=== PATIENT | male | born 1945 | race American Indian/Alaskan Native ===

== ENCOUNTER 2018-03-12 04:39 | Emergency (ER) | payer MEDICARE ==
[2018-03-12] MEDS ORDERED: ASPIRIN PO ONE (05:23)
[2018-03-12 06:04] LABS: Basophils % (Auto) 0.9 % (0.0-1.8); Eosinophils # (Auto) 0.1 K/mm3 (0.0-0.4); Eosinophils % (Auto) 1.8 % (0.0-4.3); Hematocrit 40.9 % (35.5-45.6); Hemoglobin 12.8 gm/dl (11.8-15.2); Lymphocytes # (Auto) 1.3 K/mm3 (1.2-5.4); Lymphocytes % (Auto) 30.6 % (13.4-35.0); Mean Corpuscular HGB Conc 31 % (32-34); Mean Corpuscular Volume 78 fl (84-94); Monocytes # (Auto) 0.4 K/mm3 (0.0-0.8); Platelet Count 247 K/mm3 (140-440); Red Blood Count 5.26 M/mm3 (3.65-5.03); Red Cell Distribution Width 17.5 % (13.2-15.2)
[2018-03-12 06:05] LABS: Mean Corpuscular Hemoglobin 24 pg (28-32)
[2018-03-12 06:15] LABS: BUN/Creatinine Ratio 11; Blood Urea Nitrogen 14 mg/dL (9-20); Calcium 8.9 mg/dL (8.4-10.2); Hemolysis Index 17
--- NOTE | 2018-03-12 11:44 | Cat Scan Report ---
CTA chest: History: Intermittent chest pain. Findings: Focal area of low attenuation left lobe of thyroid gland. No endobronchial or mediastinal mass or adenopathy. No pleural or pericardial effusion. Atherosclerotic ascending thoracic aorta measuring 3.3 cm. Descending thoracic aorta deb 3 cm with mural thrombus. No evidence of pulmonary embolism. 1 cm noncalcified nodule right lower chest. Impression: No evidence of pulmonary embolism. 1 cm noncalcified nodule right lower chest.
--- NOTE | 2018-03-12 12:46 | Emergency Department Report ---
ED Chest Pain HPI - General Chief Complaint: Chest Pain Stated Complaint: CHEST PAIN Time Seen by Provider: 03/12/18 09:34 Source: patient Mode of arrival: Ambulatory Limitations: No Limitations - History of Present Illness Initial Comments: Patient is 72-year-old male who is presenting with some left- sided chest discomfort. Patient states this is worse when he is laying flat but is having some tiles throughout the day for the last several days. Patient has had a dry cough as well. Patient when he does get chest discomfort sometimes feels those breast being taken away. Patient states the discomfort sometimes radiates through his back as well. Patient denies any fevers chills congestion current chest pain or shortness of breath nausea vomiting. Severity scale (0 -10): 0 - Related Data Home Medications Medication Instructions Recorded Confirmed Last Taken Aspirin [Aspirin BABY CHEW TAB] 81 mg PO QDAY 05/06/16 05/06/16 05/06/16 Atenolol [Tenormin] 50 mg PO QAM 05/06/16 05/06/16 05/06/16 Atenolol [Tenormin] 50 mg PO QHS 05/06/16 05/06/16 Unknown Atorvastatin [Lipitor] 80 mg PO QHS 05/06/16 05/06/16 Unknown Clopidogrel [Plavix] 75 mg PO QDAY 05/06/16 05/06/16 05/06/16 ISOSORBIDE MONOnitrate [Imdur ER] 60 mg PO QDAY 05/06/16 05/06/16 05/06/16 amLODIPine [Norvasc] 10 mg PO DAILY 05/06/16 05/06/16 05/06/16 Previous Rx's Medication Instructions Recorded Last Taken Type Pantoprazole [Protonix TAB] 40 mg PO QDAY #30 tablet 05/07/16 Unknown Rx Pantoprazole [Protonix TAB] 20 mg PO DAILY #30 tablet. 03/12/18 Unknown Rx Allergies Allergy/AdvReac Type Severity Reaction Status Date / Time No Known Allergies Allergy Verified 10/21/16 21:49 Heart Score - HEART Score History: Slightly suspicious EKG: Normal Age: > 65 Risk factors: 1-2 risk factors Troponin: < normal limit HEART Score: 3 ED Review of Systems ROS: Stated complaint: CHEST PAIN Other details as noted in HPI Comment: All other systems reviewed and negative ED Past Medical Hx - Past Medical History Previous Medical History?: Yes Hx Hypertension: Yes Hx GERD: Yes Hx Renal Disease: Yes Hx COPD: Yes Additional medical history: PVD, Atherosclerosis,hyperlipedemia - Surgical History Past Surgical History?: No - Social History Smoking Status: Never Smoker Substance Use Type: None - Medications Home Medications: Home Medications Medication Instructions Recorded Confirmed Last Taken Type Aspirin [Aspirin BABY CHEW TAB] 81 mg PO QDAY 05/06/16 05/06/16 05/06/16 History Atenolol [Tenormin] 50 mg PO QAM 05/06/16 05/06/16 05/06/16 History Atenolol [Tenormin] 50 mg PO QHS 05/06/16 05/06/16 Unknown History Atorvastatin [Lipitor] 80 mg PO QHS 05/06/16 05/06/16 Unknown History Clopidogrel [Plavix] 75 mg PO QDAY 05/06/16 05/06/16 05/06/16 History ISOSORBIDE MONOnitrate [Imdur ER] 60 mg PO QDAY 05/06/16 05/06/16 05/06/16 History amLODIPine [Norvasc] 10 mg PO DAILY 05/06/16 05/06/16 05/06/16 History Pantoprazole [Protonix TAB] 40 mg PO QDAY #30 tablet 05/07/16 Unknown Rx Pantoprazole [Protonix TAB] 20 mg PO DAILY #30 tablet. 03/12/18 Unknown Rx ED Physical Exam - General Limitations: No Limitations General appearance: alert, in no apparent distress - Head Head exam: Present: atraumatic, normocephalic - Eye Eye exam: Present: normal appearance - ENT ENT exam: Present: mucous membranes moist - Neck Neck exam: Present: normal inspection - Respiratory Respiratory exam: Present: normal lung sounds bilaterally. Absent: respiratory distress - Cardiovascular Cardiovascular Exam: Present: regular rate, normal rhythm. Absent: systolic murmur, diastolic murmur, rubs, gallop - GI/Abdominal GI/Abdominal exam: Present: soft, normal bowel sounds - Rectal Rectal exam: Present: deferred - Extremities Exam Extremities exam: Present: normal inspection - Back Exam Back exam: Present: normal inspection - Neurological Exam Neurological exam: Present: alert, oriented X3 - Psychiatric Psychiatric exam: Present: normal affect, normal mood - Skin Skin exam: Present: warm, dry, intact, normal color. Absent: rash ED Course Vital Signs 03/12/18 03/12/18 03/12/18 05:18 09:40 11:22 Temperature 98 F Pulse Rate 67 64 Respiratory 18 16 16 Rate Blood Pressure 131/75 Blood Pressure 137/76 [Right] O2 Sat by Pulse 97 Oximetry 03/12/18 03/12/18 03/12/18 11:55 11:57 11:59 Temperature Pulse Rate Respiratory Rate Blood Pressure Blood Pressure [Right] O2 Sat by Pulse 96 97 96 Oximetry 03/12/18 12:01 Temperature Pulse Rate Respiratory Rate Blood Pressure Blood Pressure [Right] O2 Sat by Pulse 96 Oximetry BOSTON score - Boston Score Age > 65: (1) Yes Aspirin use within the Past 7 Days: (1) Yes 3 or more CAD Risk Factors: (1) Yes 2 or more Angina events in past 24 hrs: (0) No Known CAD with more than 50% Stenosis: (1) Yes Elevated Cardiac Markers: (0) No ST Deviation Greater than 0.5mm: (0) No BOSTON Score: 4 ED Medical Decision Making - Lab Data Result diagrams: 03/12/18 05:51 03/12/18 05:51 Lab Results 03/12/18 03/12/18 03/12/18 Range/Units 05:51 05:51 08:03 WBC 4.3 L (4.5-11.0) K/mm3 RBC 5.26 H (3.65-5.03) M/mm3 Hgb 12.8 (11.8-15.2) gm/dl Hct 40.9 (35.5-45.6) % MCV 78 L (84-94) fl MCH 24 L (28-32) pg MCHC 31 L (32-34) % RDW 17.5 H (13.2-15.2) % Plt Count 247 (140-440) K/mm3 Lymph % (Auto) 30.6 (13.4-35.0) % Shannon % (Auto) 9.0 H (0.0-7.3) % Eos % (Auto) 1.8 (0.0-4.3) % Baso % (Auto) 0.9 (0.0-1.8) % Lymph # 1.3 (1.2-5.4) K/mm3 Shannon # 0.4 (0.0-0.8) K/mm3 Eos # 0.1 (0.0-0.4) K/mm3 Baso # 0.0 (0.0-0.1) K/mm3 Seg Neutrophils % 57.7 (40.0-70.0) % Seg Neutrophils # 2.5 (1.8-7.7) K/mm3 Sodium 144 (137-145) mmol/L Potassium 4.1 (3.6-5.0) mmol/L Chloride 106.8 (98-107) mmol/L Carbon Dioxide 26 (22-30) mmol/L Anion Gap 15 mmol/L BUN 14 (9-20) mg/dL Creatinine 1.3 (0.8-1.5) mg/dL Estimated GFR > 60 ml/min BUN/Creatinine Ratio 11 % Calcium 8.9 (8.4-10.2) mg/dL Troponin T < 0.010 < 0.010 (0.00-0.029) ng/mL 03/12/18 Range/Units 11:40 WBC (4.5-11.0) K/mm3 RBC (3.65-5.03) M/mm3 Hgb (11.8-15.2) gm/dl Hct (35.5-45.6) % MCV (84-94) fl MCH (28-32) pg MCHC (32-34) % RDW (13.2-15.2) % Plt Count (140-440) K/mm3 Lymph % (Auto) (13.4-35.0) % Shannon % (Auto) (0.0-7.3) % Eos % (Auto) (0.0-4.3) % Baso % (Auto) (0.0-1.8) % Lymph # (1.2-5.4) K/mm3 Shannon # (0.0-0.8) K/mm3 Eos # (0.0-0.4) K/mm3 Baso # (0.0-0.1) K/mm3 Seg Neutrophils % (40.0-70.0) % Seg Neutrophils # (1.8-7.7) K/mm3 Sodium (137-145) mmol/L Potassium (3.6-5.0) mmol/L Chloride (98-107) mmol/L Carbon Dioxide (22-30) mmol/L Anion Gap mmol/L BUN (9-20) mg/dL Creatinine (0.8-1.5) mg/dL Estimated GFR ml/min BUN/Creatinine Ratio % Calcium (8.4-10.2) mg/dL Troponin T < 0.010 (0.00-0.029) ng/mL - EKG Data -: EKG Interpreted by Pr - EKG Data Interpretation: other (EKG shows sinus rhythm a rate of 63 and normal axis normal intervals no ST segment elevation or depression as interpreted at [facility] has a normal EKG.) - Radiology Data Radiology results: report reviewed CT angiogram of the chest shows no aortic dissection or pulmonary embolus at this time. - Medical Decision Making Patient is a 72-year-old male who is having episodic chest discomfort lasts up to 5 minutes at a time. Patient states sometimes this takes his breath away and caused him to have a dry cough briefly. Patient states it woke him up last night. Patient ruled out for [place] pneumonia pericarditis and pulmonary embolus and aortic dissection. Patient most likely has GERD. Patient will be started on Protonix will be discharged home. Critical care attestation.: If time is entered above; I have spent that time in minutes in the direct care of this critically ill patient, excluding procedure time. ED Disposition Clinical Impression: GERD (gastroesophageal reflux disease) Qualifiers: Esophagitis presence: esophagitis presence not specified Qualified Code(s): K21.9 - Gastro-esophageal reflux disease without esophagitis Disposition: DC-01 TO HOME OR SELFCARE Is pt being admited?: No Does the pt Need Aspirin: No Condition: Stable Prescriptions: Pantoprazole [Protonix TAB] 20 mg PO DAILY #30 tablet.dr Referrals: MELANIE LORD MD [Primary Care Provider] - 3-5 Days
[2018-03-12 13:27] VITALS: BP 132/78
== END 2018-03-12 12:50 | disposition home or self-care (01) ==
LOC: ED 04:39
DX: K21.9 Gastro-esophageal reflux disease without esophagitis (principal); R05 Cough; I10 Essential (primary) hypertension; J44.9 Chronic obstructive pulmonary disease, unspecified; E78.5 Hyperlipidemia, unspecified; Z79.899 Other long term (current) drug therapy
CPT/HCPCS: 36415; 71275; 80048; 84484; 85025; 93005; 93010; 99284; Q9967

== ENCOUNTER 2018-03-27 07:37 | Outpatient (CLI) | payer MEDICARE ==
--- NOTE | 2018-03-28 08:24 | PET Report ---
PET/CT:03/27/18 07:37:00 CLINICAL: Right lower lobe lung nodule RADIOPHARMACEUTICAL: 14.33mCi F18-FDG. COMPARISON: CT Chest 03/12/18 TECHNIQUE- Following intravenous injection of F-18 FDG and an approximately 60 minute uptake period, CT and PET images from the mid skull to the upper thighs were acquired with the patient in the fasted state. No contrast was administered. The CT protocol used for this PET CT study is designed for attenuation correction and anatomic localization of PET abnormalities. This paint spray tender CT is not desired to produce and cannot replace, [id number] diagnostic CT scans with specific imaging protocols for different body parts and indications. Plasma glucose at the time of this test: 118g/dl. The standardized uptake values (SUV) are normalized to patient body weight and indicate the highest activity concentration (SUV max) in a given disease site. FINDINGS: Brain--Physiologic FDG uptake in the visualized regions of the brain. Neck--Physiologic FDG uptake mucosal structures and salivary glands. The left thyroid lobe is mildly enlarged and heterogeneous in density. Chest--Physiologic FDG uptake in mediastinal blood pool and myocardium. Lungs--No abnormal uptake. The 1.1 cm x 1.1 cm right lower lobe lung nodule is not FDG avid with an SUV 1.4. No other lung nodule or mass. Pleura/pericardium--No abnormal uptake. Thoracic nodes--No abnormal uptake. No lymphadenopathy. Hepatobiliary--No abnormal uptake. Liver background SUV mean, as a reference for comparing FDG studies, is 3.6 . No liver mass. Spleen--No abnormal uptake. Pancreas--No abnormal uptake. Adrenal Glands--No abnormal uptake. Kidneys/Ureters/Bladder--No abnormal uptake. Abdominopelvic Nodes--No abnormal uptake. Bowel/Peritoneum/Mesentery--No abnormal uptake. Pelvic organs--No abnormal uptake. Bones/Soft Tissues--No abnormal uptake. No suspicious bone lesion. Other findings: Extensive coronary artery calcifications. IMPRESSION- 1. A 1.1 cm non-FDG avid right lower lobe lung nodule. It remains suspicious for neoplasm despite the lack of FDG uptake. 2. The rest of the exam is negative with no abnormal FDG uptake and no signs of metastatic disease.
== END 2018-03-27 07:38 | disposition home or self-care (01) ==
LOC: PET 07:37
PROVIDERS: ATTEND Internal Medicine
DX: R91.1 Solitary pulmonary nodule (principal); E04.9 Nontoxic goiter, unspecified; I25.10 Atherosclerotic heart disease of native coronary artery without angina pectoris; I10 Essential (primary) hypertension; K21.9 Gastro-esophageal reflux disease without esophagitis; E78.5 Hyperlipidemia, unspecified; J44.9 Chronic obstructive pulmonary disease, unspecified; Z87.891 Personal history of nicotine dependence
CPT/HCPCS: 78815; 82962; A9552

== ENCOUNTER 2018-07-21 07:20 | Outpatient (CLI) | payer MEDICARE ==
[2018-07-21 08:10] LABS: BUN/Creatinine Ratio 14; Blood Urea Nitrogen 17 mg/dL (9-20); Calcium 9.2 mg/dL (8.4-10.2); Hemolysis Index 0
--- NOTE | 2018-07-21 08:15 | XRay Report ---
ROUTINE CHEST, TWO VIEWS: HISTORY: Lung nodule. The trachea, heart, mediastinal contour, lung bass and bony thorax are unremarkable. The 1.1 cm right lower lobe lung nodule noted on recent PET CT is not clearly identified on x-ray. IMPRESSION: Unremarkable chest x-ray.
--- NOTE | 2018-07-21 11:59 | Cat Scan Report ---
CT CHEST WITH CONTRAST: HISTORY: Right lower lobe lung nodule. COMPARISON: 03/12/18. TECHNIQUE: Helical CT in 1.25mm intervals following IV contrast. Sagittal and coronal reformatted images. FINDINGS: Thyroid gland: Normal. Tracheobronchial tree: Normal. Esophagus: Normal. Heart: Normal. Pericardium: Normal. Mediastinum: There are moderate atherosclerotic plaques throughout the thoracic aorta. No aneurysm or dissection. Lung Cesar: The 1.1 cm nodule in the subpleural region of the right lower lobe is unchanged in size and contour. The remainder of the lungs are clear. No underlying parenchymal lung disease is detected. Pleural Spaces: Normal. Musculoskeletal: Normal. IMPRESSION: No change in the 1.1 cm right lower lobe nodule since 03/12/18.
== END 2018-07-21 07:21 | disposition home or self-care (01) ==
LOC: CT 07:20
PROVIDERS: ATTEND Internal Medicine
DX: R91.1 Solitary pulmonary nodule (principal); I10 Essential (primary) hypertension; K21.9 Gastro-esophageal reflux disease without esophagitis; I25.10 Atherosclerotic heart disease of native coronary artery without angina pectoris; E78.5 Hyperlipidemia, unspecified; J44.9 Chronic obstructive pulmonary disease, unspecified; I73.9 Peripheral vascular disease, unspecified; Z87.891 Personal history of nicotine dependence
CPT/HCPCS: 36415; 71046; 71260; 80048; Q9967

== ENCOUNTER 2020-12-30 21:23 | Observation (INO) | payer MEDICARE ==
[2020-12-30] MEDS ORDERED: ASPIRIN 325 MG TAB PO ONE (22:01)
[2020-12-30 22:29] LABS: Basophils % (Auto) 0.6 % (0.0-1.8); Eosinophils # (Auto) 0.1 K/mm3 (0.0-0.4); Eosinophils % (Auto) 2.7 % (0.0-4.3); Hemoglobin 13.1 gm/dl (11.8-15.2); Lymphocytes # (Auto) 1.4 K/mm3 (1.2-5.4); Lymphocytes % (Auto) 36.8 % (13.4-35.0); Mean Corpuscular HGB Conc 33 % (32-34); Mean Corpuscular Volume 78 fl (84-94); Monocytes # (Auto) 0.3 K/mm3 (0.0-0.8); Platelet Count 226 K/mm3 (140-440); Red Blood Count 5.15 M/mm3 (3.65-5.03)
--- NOTE | 2020-12-30 22:39 | XRay Report ---
CHEST 1 VIEW 12/30/2020 10:34 PM INDICATION / CLINICAL INFORMATION: Chest Pain. COMPARISON: 06/12/2020. 07/21/2018. FINDINGS: SUPPORT DEVICES: None. HEART / MEDIASTINUM: No significant abnormality. LUNGS / PLEURA: No acute infiltrate. Nodule again seen at the right lung base medially. This may be s lightly larger. No pleural fluid. ADDITIONAL FINDINGS: No significant additional findings. IMPRESSION: 1. No acute infiltrate. 2. Question enlargement of right basilar lung nodule. This could be better evaluated with CT chest as clinically indicated. Signer Name: Vladislav Salomon MD Signed: 12/30/2020 10:34 PM Workstation Name: [id number]
[2020-12-30 22:50] LABS: BUN/Creatinine Ratio 10; Blood Urea Nitrogen 16 mg/dL (9-20); Calcium 9.4 mg/dL (8.4-10.2); Hemolysis Index 3
--- NOTE | 2020-12-31 00:23 | Emergency Department Report ---
ED Chest Pain HPI - General Chief Complaint: Chest Pain Stated Complaint: CHEST PAIN PUI?: No Time Seen by Provider: 12/31/20 00:12 Source: patient Mode of arrival: Ambulatory Limitations: No Limitations - History of Present Illness Initial Comments: Patient is a 75-year-old male that presents emergency room with left upper chest pain. Patient states the pain started 3 days ago. Patient states the pain was intermittent and is worsening. Patient states that patient states that it has been constant for the past 4 hours. Patient states the pain is severe. Patient dates the pain is nonradiating. Patient denies shortness of breath but complains of dyspnea on exertion. Patient denies fever and chills. Patient denies cough. Patient denies recent travel. Patient denies recent international travel. Patient denies exposure to the novel coronavirus. Patient denies sick contacts. Patient denies fever and chills. Patient denies cough. Patient denies diarrhea. Patient denies coming in contact with anybody with symptoms of the novel coronavirus. MD Complaint: chest pain -: Sudden Onset: during rest Pain Location: left chest Pain Radiation: none Severity: severe Severity scale (0 -10): 10 Quality: sharp Consistency: constant Improves With: rest Worsens With: exertion re: denies: nausea, vomting, diaphoresis, sense of impending doom Other Symptoms: denies: cough, fever, syncope, rash, acid taste in mouth, leg swelling, palpitations, burping Treatments Prior to Arrival: aspirin Aspirin use within the Past 7 Days: (1) Yes - Related Data On Oral Contraceptives: No Home Medications Medication Instructions Recorded Confirmed Last Taken Aspirin [Aspirin BABY CHEW TAB] 81 mg PO QDAY 05/06/16 06/13/20 08/08/18 Atorvastatin [Lipitor] 80 mg PO QHS 05/06/16 06/13/20 08/14/18 Clopidogrel [Plavix] 75 mg PO QDAY 05/06/16 06/13/20 08/08/18 ISOSORBIDE MONOnitrate [Imdur ER] 60 mg PO QDAY 05/06/16 06/13/20 08/14/18 amLODIPine 10 mg PO QHS 05/06/16 06/14/20 08/14/18 atenoloL [Tenormin] 50 mg PO BID 05/06/16 06/13/20 08/14/18 ALBUTEROL Inhaler(NF) [VENTOLIN 1 puff IH BID PRN 08/15/18 06/13/20 08/14/18 Inhaler(NF)] Previous Rx's Medication Instructions Recorded Last Taken Type Ranolazine ER [Ranexa ER] 500 mg PO BID #60 tablet 06/14/20 Unknown Rx Allergies Allergy/AdvReac Type Severity Reaction Status Date / Time diltiazem Allergy Intermediate Rash Verified 08/15/18 10:01 Heart Score - HEART Score History: Moderately suspicious EKG: Non-specific Age: > 65 Risk factors: > 3 risk factors or hx of atherosclerotic disease Troponin: < normal limit HEART Score: 6 ED Review of Systems ROS: Stated complaint: CHEST PAIN Other details as noted in HPI Constitutional: denies: chills, fever Eyes: denies: eye pain, eye discharge, vision change ENT: denies: ear pain, throat pain Respiratory: SOB with exertion. denies: cough, shortness of breath, wheezing Cardiovascular: as per HPI, chest pain, dyspnea on exertion. denies: palpitations Endocrine: no symptoms reported Gastrointestinal: denies: abdominal pain, nausea, diarrhea Genitourinary: denies: urgency, dysuria Musculoskeletal: denies: back pain, joint swelling, arthralgia Skin: denies: rash, lesions Neurological: denies: headache, weakness, paresthesias Psychiatric: denies: anxiety, depression Hematological/Lymphatic: denies: easy bleeding, easy bruising ED Past Medical Hx - Past Medical History Previous Medical History?: Yes Hx Hypertension: Yes Hx Deep Vein Thrombosis: Yes Hx Pulmonary Embolism: Yes Hx GERD: Yes Hx Renal Disease: Yes Hx Arthritis: Yes Hx Headaches / Migraines: Yes Hx COPD: Yes Hx HIV: No Additional medical history: PVD, Atherosclerosis,hyperlipedemia. CAD - Surgical History Past Surgical History?: No - Family History Family history: no significant - Social History Smoking Status: Never Smoker Substance Use Type: None - Medications Home Medications: Home Medications Medication Instructions Recorded Confirmed Last Taken Type Aspirin [Aspirin BABY CHEW TAB] 81 mg PO QDAY 05/06/16 06/13/20 08/08/18 History Atorvastatin [Lipitor] 80 mg PO QHS 05/06/16 06/13/20 08/14/18 History Clopidogrel [Plavix] 75 mg PO QDAY 07/08/1206/13/20 08/08/18 History ISOSORBIDE MONOnitrate [Imdur ER] 60 mg PO QDAY 05/06/16 06/13/20 08/14/18 History amLODIPine 10 mg PO QHS 05/06/16 06/14/20 08/14/18 History atenoloL [Tenormin] 50 mg PO BID 05/06/16 06/13/20 08/14/18 History ALBUTEROL Inhaler(NF) [VENTOLIN 1 puff IH BID PRN 08/15/18 06/13/20 08/14/18 History Inhaler(NF)] Ranolazine ER [Ranexa ER] 500 mg PO BID #60 tablet 06/14/20 Unknown Rx ED Physical Exam - General Limitations: No Limitations General appearance: alert, in no apparent distress - Head Head exam: Present: atraumatic, normocephalic - Eye Eye exam: Present: normal appearance - ENT ENT exam: Present: mucous membranes moist - Neck Neck exam: Present: normal inspection - Respiratory Respiratory exam: Present: normal lung sounds bilaterally. Absent: respiratory distress, wheezes, rales, chest wall tenderness - Cardiovascular Cardiovascular Exam: Present: regular rate, normal rhythm. Absent: systolic murmur, diastolic murmur, rubs, gallop - GI/Abdominal GI/Abdominal exam: Present: soft, normal bowel sounds. Absent: distended, tenderness, guarding - Rectal Rectal exam: Present: deferred - Extremities Exam Extremities exam: Present: normal inspection - Back Exam Back exam: Present: normal inspection - Neurological Exam Neurological exam: Present: alert, oriented X3 - Psychiatric Psychiatric exam: Present: normal affect, normal mood - Skin Skin exam: Present: warm, dry, intact, normal color. Absent: rash ED Course Vital Signs 12/30/20 12/31/20 12/31/20 21:55 00:31 00:44 Temperature 98.1 F Pulse Rate 65 58 L Respiratory 18 19 16 Rate Blood Pressure 144/95 172/86 O2 Sat by Pulse 94 97 Oximetry - Reevaluation(s) Reevaluation #1: I discussed all results with patient. I discussed plan of care with patient. Patient agrees with plan of care and admission. Patient to be admitted to the hospitalist service. 12/31/20 01:03 - Consultations Consultation #1: Hospitalist consulted for admission. Hospitalist to admit patient. 12/31/20 01:03 BOSTON score - [place] Score Age > 65: (1) Yes Aspirin use within the Past 7 Days: (1) Yes 3 or more CAD Risk Factors: (1) Yes 2 or more Angina events in past 24 hrs: (0) No Known CAD with more than 50% Stenosis: (1) Yes Elevated Cardiac Markers: (0) No ST Deviation Greater than 0.5mm: (0) No BOSTON Score: 4 ED Medical Decision Making - Lab Data Result diagrams: 12/30/20 22:18 12/30/20 22:18 - EKG Data -: EKG Interpreted by Me EKG shows normal: sinus rhythm, axis, intervals, QRS complexes, ST-T waves Rate: normal - Radiology Data Radiology results: report reviewed, image reviewed interpreted by me: Chest x-ray: No pneumonia, no pneumothorax, no foreign body, no osseous findings, no acute findings CHEST 1 VIEW 12/30/2020 10:34 PM INDICATION / CLINICAL INFORMATION: Chest Pain. COMPARISON: 06/12/2020. 07/21/2018. FINDINGS: SUPPORT DEVICES: None. HEART / MEDIASTINUM: No significant abnormality. LUNGS / PLEURA: No acute infiltrate. Nodule again seen at the right lung base medially. This may be slightly larger. No pleural fluid. ADDITIONAL FINDINGS: No significant additional findings. IMPRESSION: 1. No acute infiltrate. 2. Question enlargement of right basilar lung nodule. This could be better evaluated with CT chest as clinically indicated. - Medical Decision Making Patient is a 75-year-old male that presents emergency room with complaints of chest pain and left upper chest. Patient has a history of CAD and hypertension and PAD. Patient given aspirin after initial evaluation. Patient had labs done which were essentially unremarkable. Patient's troponin was negative. Patient's chest x-ray is negative for acute findings. Patient's EKG was negative for acute findings and showed a normal ST segment. I personally re viewed the EKG and the chest x-ray. Patient has an elevated heart score due to his past medical history, comorbidities and age. Patient admitted to the hospitalist service for further evaluation and treatment and rule out ACS. - Differential Diagnosis Chest pain, ACS, REDDING, CHF, CAD Critical care attestation.: If time is entered above; I have spent that time in minutes in the direct care of this critically ill patient, excluding procedure time. ED Disposition Clinical Impression: Acute coronary syndrome, REDDING (dyspnea on exertion), Renal insufficiency CAD (coronary artery disease) Qualifiers: Coronary Disease-Associated Artery/Lesion type: unspecified vessel or lesion type [place] vs. transplanted heart: [place] heart Associated angina: angina presence unspecified Qualified Code(s): I25.10 - Atherosclerotic heart disease of [place] coronary artery without angina pectoris HTN (hypertension) Qualifiers: Hypertension type: essential hypertension Qualified Code(s): I10 - Essential (primary) hypertension Disposition: OP ADMIT IP TO THIS HOSP Is pt being admited?: Yes Does the pt Need Aspirin: No Condition: Critical Instructions: Chest Pain (ED), Hypertension (ED) Time of Disposition: 01:07
[2020-12-31] MEDS ORDERED: ASPIRIN 325 MG TAB PO ONE (01:40)
[2020-12-31] MEDS ORDERED: ALUM-MAG HYDROXIDE-SIMETHICONE 200-200-20MG/5ML ORAL LIQD 30 ML PO PRN (01:53)
[2020-12-31] MEDS ORDERED: ONDANSETRON 4 MG/2 ML INJ IV PRN (01:53)
[2020-12-31] MEDS ORDERED: MAGNESIUM HYDROXIDE (MOM) ORAL LIQD UDC PO PRN (01:53)
[2020-12-31] MEDS ORDERED: SENNOSIDES 8.6 MG TAB PO PRN (01:53)
[2020-12-31] MEDS ORDERED: ACETAMINOPHEN 325 MG TAB PO PRN (01:53)
[2020-12-31] MEDS ORDERED: hydrALAZINE 20 MG/1 ML INJ IV PRN ×2 (01:57→06:39)
[2020-12-31] MEDS ORDERED: traMADol 50 MG TAB PO PRN (01:58)
[2020-12-31] MEDS ORDERED: traZODone 50 MG TAB PO PRN (01:58)
--- NOTE | 2020-12-31 03:23 | History and Physical Report ---
History of Present Illness Date of examination: 12/31/20 Date of admission: 12/31/20 01:08 Chief complaint: Chest pain History of present illness: Patient is a 75-year-old male that presents emergency room with left upper chest pain. Patient states the pain started 3 days ago. Patient states the pain was intermittent and is worsening. Patient states that patient states that it has been constant for the past 4 hours. Patient states the pain is severe. Patient dates the pain is nonradiating. Patient denies shortness of breath but complains of dyspnea on exertion. Patient denies fever and chills. Patient denies cough. ED work-up shows WBC 3.8, hemoglobin 13.1, creatinine 1.6, sodium 130 potassium 3.9, platelets 226 Glucose 110, calcium 9.4, troponins negative. Checks x-ray no acute finding but questionable enlarged right basilar air lung nodule Patient seen at bedside in ED. Patient denies chest pain at time of assessment. he said he was given ASA and it helped. Reviewed lab, medication record, and vital signs. Past History Past Medical History: CAD, hypertension, hyperlipidemia Past Surgical History: No surgical history Social history: lives with family. denies: smoking, alcohol abuse, IV drug use Family history: hypertension Medications and Allergies Allergies Allergy/AdvReac Type Severity Reaction Status Date / Time diltiazem Allergy Intermediate Rash Verified 08/15/18 10:01 Home Medications Medication Instructions Recorded Confirmed Last Taken Type Aspirin [Aspirin BABY CHEW TAB] 81 mg PO QDAY 05/06/16 06/13/20 08/08/18 History Atorvastatin [Lipitor] 80 mg PO QHS 05/06/16 06/13/20 08/14/18 History Clopidogrel [Plavix] 75 mg PO QDAY 05/06/16 06/13/20 08/08/18 History ISOSORBIDE MONOnitrate [Imdur ER] 60 mg PO QDAY 05/06/16 06/13/20 08/14/18 History amLODIPine 10 mg PO QHS 05/06/16 06/14/20 08/14/18 History atenoloL [Tenormin] 50 mg PO BID 05/06/16 06/13/20 08/14/18 History ALBUTEROL Inhaler(NF) [VENTOLIN 1 puff IH BID PRN 08/15/18 06/13/20 08/14/18 History Inhaler(NF)] Ranolazine ER [Ranexa ER] 500 mg PO BID #60 tablet 06/14/20 Unknown Rx Active Meds: Active Medications Acetaminophen (Acetaminophen 325 Mg Tab) 650 mg PO Q4H PRN PRN Reason: Pain MILD(1-3)/Fever >100.5/MELTON Al Hydrox/Mg Hydrox/Simethicone (Alum-Mag Hydroxide-Simethicone [id number]/5ml Oral Liqd 30 Ml) 30 ml PO Q4H PRN PRN Reason: Indigestion Famotidine (Famotidine 20 Mg/2 Ml Inj) 20 mg IV QAM VICKY Hydralazine HCl (Hydralazine 20 Mg/1 Ml Inj) 5 mg IV Q4H PRN PRN Reason: Hypertension Magnesium Hydroxide (Magnesium Hydroxide (Mom) Oral Liqd Udc) 30 ml PO Q4H PRN PRN Reason: Constipation Ondansetron HCl (Ondansetron 4 Mg/2 Ml Inj) 4 mg IV Q8H PRN PRN Reason: Nausea And Vomiting Senna (Sennosides 8.6 Mg Tab) 8.6 mg PO Q12HR PRN PRN Reason: Constipation Sodium Chloride (Sodium Chloride 0.9% 10 Ml Flush Syringe) 10 ml IV BID VICKY Sodium Chloride (Sodium Chloride 0.9% 10 Ml Flush Syringe) 10 ml IV PRN PRN PRN Reason: LINE FLUSH Tramadol HCl (Tramadol 50 Mg Tab) 50 mg PO Q4H PRN PRN Reason: Pain, Moderate (4-6) Trazodone HCl (Trazodone 50 Mg Tab) 50 mg PO QHS PRN PRN Reason: Insomnia Review of Systems Constitutional: fatigue, weakness Ears, nose, mouth and throat: no epistaxis, no bleeding gums Cardiovascular: chest pain, dyspnea on exertion, high blood pressure Gastrointestinal: no melena Rectal: no hemorrhoids Musculoskeletal: no neck stiffness Integumentary: no rash, no pruritis Neurological: no head injury Exam - Constitutional Vitals: Temp Pulse Resp BP Pulse Ox 98.1 F 63 17 139/74 97 12/30/20 21:55 12/31/20 03:01 12/31/20 03:01 12/31/20 03:01 12/31/20 03:01 General appearance: Present: mild distress, well-nourished - EENT Eyes: Present: PERRL ENT: hearing intact, clear oral mucosa - Neck Neck: Present: supple, normal ROM - Respiratory Respiratory effort: normal Respiratory: bilateral: CTA - Cardiovascular Heart Sounds: Present: S1 & S2. Absent: rub, click - Extremities Extremities: pulses symmetrical, No edema Peripheral Pulses: within normal limits - Abdominal General gastrointestinal: Present: soft, non-tender, non-distended, normal bowel sounds Male genitourinary: Present: normal - Integumentary Integumentary: Present: clear, warm, dry - Musculoskeletal Musculoskeletal: gait normal, strength equal bilaterally - Psychiatric Psychiatric: appropriate mood/affect, intact judgment & insight, cooperative - Neurologic Neurologic: CNII-XII intact, moves all extremities - Allied Health Allied health notes reviewed: nursing HEART Score - HEART Score EKG: Non-specific Age: > 65 Risk factors: > 3 risk factors or hx of atherosclerotic disease Troponin: Troponin T < 0.010 ng/mL (0.00-0.029) 12/31/20 01:20 Troponin: < normal limit Results - Labs CBC & Chem 7: 12/30/20 22:18 12/30/20 22:18 Labs: Abnormal lab results 12/30/20 12/30/20 Range/Units 22:18 22:18 WBC 3.8 L (4.5-11.0) K/mm3 RBC 5.15 H (3.65-5.03) M/mm3 MCV 78 L (84-94) fl MCH 25 L (28-32) pg RDW 18.0 H (13.2-15.2) % Lymph % (Auto) 36.8 H (13.4-35.0) % [place] % (Auto) 9.0 H (0.0-7.3) % Creatinine 1.6 H (0.8-1.3) mg/dL Glucose 110 H (75-100) mg/dL Assessment and Plan - Patient Problems (1) Chest pain Current Visit: Yes Status: Acute Plan to address problem: Continue cardioprotective measures Aspirin, statin, and sublingual nitro Echocardiogram ordered [place] consulted (2) HTN (hypertension) Current Visit: Yes Status: Chronic Qualifiers: Hypertension type: essential hypertension Qualified Code(s): I10 - Essential (primary) hypertension Plan to address problem: Monitor blood pressure Resume home antihypertensives Adjust as needed (3) Renal insufficiency Current Visit: Yes Status: Acute Plan to address problem: Monitor kidney function Avoid nephrotoxic drugs (4) CAD (coronary artery disease) Current Visit: Yes Status: Chronic Qualifiers: Coronary Disease-Associated Artery/Lesion type: unspecified vessel or lesion type [place] vs. transplanted heart: [place] heart Associated angina: angina presence unspecified Qualified Code(s): I25.10 - Atherosclerotic heart disease of [place] coronary artery without angina pectoris Plan to address problem: History of CAD resume statin and aspirin (5) DVT prophylaxis Current Visit: No Status: Acute Plan to address problem: Subcutaneous heparin
--- NOTE | 2020-12-31 09:17 | Cat Scan Report ---
CT chest without contrast INDICATION : re-evaluate lung nodule. TECHNIQUE: Axial imaging performed through the chest without the use of intravenous contrast. All C T scans at this location are performed using CT dose reduction for ALARA by means of automated exposu re control. COMPARISON: Chest CT from 07/21/2018 FINDINGS: Mild emphysematous changes again seen in the lungs with stable size of the right lower lob e subpleural nodule measuring 1.1 cm, previously 1.1 cm. There appears to be some new internal calcif ication consistent with evolving granuloma formation. This was not present on the previous exam. No o ther pulmonary nodules are identified. There is moderate to severe atherosclerotic disease throughout the thoracic aorta, mitral valve, aort ic valve, and coronary arteries. Normal heart size. No pathologic mediastinal adenopathy. There is an eurysmal dilatation of the descending thoracic aorta measuring 4 cm on image #80 of series #2. Limited imaging of the upper abdomen shows nothing acute. IMPRESSION: 1. Mild emphysema with small right lower lobe granuloma. Otherwise clear lungs. 2. Moderate to severe extensive atherosclerotic disease in the mediastinum, with aneurysmal dilatatio n of the descending thoracic aorta measuring up to 4 cm as outlined above. Signer Name: Harpreet Alfonso MD Signed: 12/31/2020 9:12 AM Workstation Name: [id number]
[2020-12-31] MEDS ORDERED: amLODIPine 10 MG TAB PO SCH (10:00)
[2020-12-31] MEDS ORDERED: ASPIRIN EC 81 MG TAB PO SCH (10:00)
[2020-12-31] MEDS ORDERED: FAMOTIDINE 20 MG/2 ML INJ IV SCH (10:00)
--- NOTE | 2020-12-31 11:34 | Consultation ---
History of Present Illness Consult date: 12/31/20 Consult reason: chest pain History of present illness: 75-year-old -[place]ian male with a history of coronary artery disease hypertension hyperlipidemia COPD and peripheral vascular disease presenting with chest pains which he describes as a 6 out of 10 precordial chest pain at rest not associated with any diaphoresis nausea vomiting and not associated with exertion. There is no radiation of this pain. Patient admitted for further ev aluation. At the time of my evaluation patient states he is chest pain-free. Past History Past Medical History: CAD, hypertension, hyperlipidemia Past Surgical History: No surgical history Social history: lives with family. denies: smoking, alcohol abuse, IV drug use Family history: hypertension Medications and Allergies Allergies Allergy/AdvReac Type Severity Reaction Status Date / Time diltiazem Allergy Intermediate Rash Verified 08/15/18 10:01 Home Medications Medication Instructions Recorded Confirmed Last Taken Type Aspirin [Aspirin BABY CHEW TAB] 81 mg PO QDAY 05/06/16 06/13/20 08/08/18 History Atorvastatin [Lipitor] 80 mg PO QHS 05/06/16 06/13/20 08/14/18 History Clopidogrel [Plavix] 75 mg PO QDAY 05/06/16 06/13/20 08/08/18 History ISOSORBIDE MONOnitrate [Imdur ER] 60 mg PO QDAY 05/06/16 06/13/20 08/14/18 History amLODIPine 10 mg PO QHS 05/06/16 06/14/20 08/14/18 History atenoloL [Tenormin] 50 mg PO BID 05/06/16 06/13/20 08/14/18 History ALBUTEROL Inhaler(NF) [VENTOLIN 1 puff IH BID PRN 08/15/18 06/13/20 08/14/18 History Inhaler(NF)] Ranolazine ER [Ranexa ER] 500 mg PO BID #60 tablet 06/14/20 Unknown Rx Active Meds: Active Medications Acetaminophen (Acetaminophen 325 Mg Tab) 650 mg PO Q4H PRN PRN Reason: Pain MILD(1-3)/Fever >100.5/[place] Al Hydrox/Mg Hydrox/Simethicone (Alum-Mag Hydroxide-Simethicone [phone]/5ml Oral Liqd 30 Ml) 30 ml PO Q4H PRN PRN Reason: Indigestion Amlodipine Besylate (Amlodipine 10 Mg Tab) 10 mg PO QDAY [facility] Last Admin: 12/31/20 09:20 Dose: 10 mg Documented by: Aspirin (Aspirin Ec 81 Mg Tab) 81 mg PO QDAY [facility] Last Admin: 12/31/20 09:18 Dose: 81 mg Documented by: Atorvastatin Calcium (Atorvastatin 40 Mg Tab) 40 mg PO QHS [facility] Famotidine (Famotidine 20 Mg Tab) 20 mg PO QAM [facility] Hydralazine HCl (Hydralazine 20 Mg/1 Ml Inj) 5 mg IV Q4H PRN PRN Reason: Hypertension Isosorbide Mononitrate (Isosorbide Mononitrate Er 60 Mg Tab) 60 mg PO QDAY [facility] Last Admin: 12/31/20 09:20 Dose: 60 mg Documented by: Magnesium Hydroxide (Magnesium Hydroxide (Mom) Oral Liqd Udc) 30 ml PO Q4H PRN PRN Reason: Constipation Ondansetron HCl (Ondansetron 4 Mg/2 Ml Inj) 4 mg IV Q8H PRN PRN Reason: Nausea And Vomiting Senna (Sennosides 8.6 Mg Tab) 8.6 mg PO Q12HR PRN PRN Reason: Constipation Sodium Chloride (Sodium Chloride 0.9% 10 Ml Flush Syringe) 10 ml IV BID [facility] Last Admin: 12/31/20 09:21 Dose: 10 ml Documented by: Sodium Chloride (Sodium Chloride 0.9% 10 Ml Flush Syringe) 10 ml IV PRN PRN PRN Reason: LINE FLUSH Tramadol HCl (Tramadol 50 Mg Tab) 50 mg PO Q4H PRN PRN Reason: Pain, Moderate (4-6) Last Admin: 12/31/20 09:19 Dose: 50 mg Documented by: Trazodone HCl (Trazodone 50 Mg Tab) 50 mg PO QHS PRN PRN Reason: Insomnia Review of Systems Constitutional: no weight loss, no weight gain, no anorexia, no fatigue, no we akness Ears, nose, mouth and throat: no ear pain, no ear discharge, no epistaxis, no bleeding gums Cardiovascular: chest pain, high blood pressure, no palpitations, no edema, no syncope, no shortness of breath, no dyspnea on exertion Respiratory: no cough, no cough with sputum, no excessive sputum, no congestion, no wheezing, no pleurisy Gastrointestinal: no abdominal pain, no nausea, no vomiting, no diarrhea, no melena, no hematochezia, no loss of appetite, no heartburn Genitourinary Male: no dysuria, no hematuria, no erectile dysfunction, no polyuria Musculoskeletal: no neck stiffness, no neck pain, no hot joints Integumentary: no deferred, no rash, no pruritis, no growths, no bullae Neurological: no head injury, no transient paralysis, no paralysis, no weakness, no vertigo Psychiatric: no anxiety, no memory loss, no suicidal ideation Endocrine: no cold intolerance, no heat intolerance, no polyphagia, no excessive thirst Hematologic/Lymphatic: no easy bruising, no easy bleeding Allergic/Immunologic: no urticaria, no allergic rhinitis, no wheezing Physical Examination Vital Signs Temp Pulse Resp BP Pulse Ox 98.1 F 65 18 144/95 94 12/30/20 21:55 12/30/20 21:55 12/30/20 21:55 12/30/20 21:55 12/30/20 21:55 General appearance: no acute distress, well-nourished HEENT: Positive: PERRL, Mucus Membranes Moist Neck: Positive: neck supple, trachea midline Cardiac: Positive: Reg Rate and Rhythm, S1/S2. Negative: Audible Murmur Lungs: Positive: clear to auscultation, Normal Breath Sounds Neuro: Positive: Grossly Intact Abdomen: Positive: Soft, Active Bowel Sounds. Negative: Tender, Distended Male genitourinary: Positive: normal Skin: Positive: Clear Incision: Cardiac Cath Site Musculoskeletal: No Pain, Normal Range of Motion Extremities: Present: normal. Absent: edema Results 12/30/20 22:18 12/30/20 22:18 CBC 12/30/20 Range/Units 22:18 WBC 3.8 L (4.5-11.0) K/mm3 RBC 5.15 H (3.65-5.03) M/mm3 Hgb 13.1 (11.8-15.2) gm/dl Hct 40.0 (35.5-45.6) % Plt Count 226 (140-440) K/mm3 Lymph # (Auto) 1.4 (1.2-5.4) K/mm3 [place] # (Auto) 0.3 (0.0-0.8) K/mm3 Eos # (Auto) 0.1 (0.0-0.4) K/mm3 Baso # (Auto) 0.0 (0.0-0.1) K/mm3 Comprehensive Metabolic Panel 12/30/20 Range/Units 22:18 Sodium 138 (137-145) mmol/L Potassium 3.9 (3.6-5.0) mmol/L Chloride 102.3 (98-107) mmol/L Carbon Dioxide 28 (22-30) mmol/L BUN 16 (9-20) mg/dL Creatinine 1.6 H (0.8-1.3) mg/dL Glucose 110 H (75-100) mg/dL Calcium 9.4 (8.4-10.2) mg/dL EKG interpretations - Telemetry EKG Rhythm: Sinus Rhythm Assessment and Plan 1. Chest pain 2. Coronary artery disease 3. Essential hypertension 4. Hyperlipidemia 5. Chronic obstructive pulmonary disease 6. Peripheral vascular disease 7. Obesity Patient is currently stable and chest pain-free. Left heart cath done May last year had documented nonobstructive coronary artery disease in the left sided dominant coronary artery system. There was a total occlusion in a small nondominant right coronary artery. Left ventricular ejection fraction is normal at 50%. Recent stress myocardial perfusion imaging done as an outpatient showed normal myocardial perfusion scan images. Plan. Cardiac larios stable will check serum troponin levels treat conservatively. No further invasive cardiac work-up planned.
[2020-12-31 14:19] VITALS: BP 144/84
--- NOTE | 2020-12-31 16:46 | Discharge Summary ---
Providers - Providers Date of Admission: 12/31/20 01:08 Date of discharge: 12/31/20 Attending physician: CEM NIÑO 12/31/20 06:34 Consult to Physician [CONS] Routine Comment: Consulting Provider: NUNO CARRASCO Physician Instructions: Reason For Exam: chest pain Primary care physician: MELANIE LORD Hospitalization Condition: Critical Hospital course: Patient is currently stable and chest pain-free. Left heart cath done May last year had documented nonobstructive coronary artery disease in the left sided dominant coronary artery system. There was a total occlusion in a small nondominant right coronary artery. Left ventricular ejection fraction is normal at 50%. Recent stress myocardial perfusion imaging done as an outpatient showed normal myocardial perfusion scan images. Plan. Cardiac larios stable will check serum troponin levels treat conservatively. No further invasive cardiac work-up planned. Patient is a 75-year-old male that presents emergency room with left upper chest pain. Patient states the pain started 3 days ago. Patient states the pain was intermittent and is worsening. Patient states that patient states that it has been constant for the past 4 hours. Patient states the pain is severe. Patient dates the pain is nonradiating. Patient denies shortness of breath but complains of dyspnea on exertion. Patient denies fever and chills. Patient denies cough. ED work-up shows WBC 3.8, hemoglobin 13.1, creatinine 1.6, sodium 130 potassium 3.9, platelets 226 Glucose 110, calcium 9.4, troponins negative. Checks x-ray no acute finding but questionable enlarged right basilar air lung nodule Patient seen at bedside in ED. Patient denies chest pain at time of assessment. he said he was given ASA and it helped. Reviewed lab, medication record, and vital signs. Assessment and Plan - Patient Problems (1) Chest pain Current Visit: Yes Status: Acute Plan to address problem: Troponins negative Recent cardiac cath and Lexiscan were normal No need for further testing (2) HTN (hypertension) Current Visit: Yes Status: Chronic Qualifiers: Hypertension type: essential hypertension Qualified Code(s): I10 - Essential (primary) hypertension Plan to address problem: Blood pressure controlled (3) HUGH Secondary to vasomotor nephropathy Improving (4) CAD (coronary artery disease) Current Visit: Yes Status: Chronic Qualifiers: Coronary Disease-Associated Artery/Lesion type: unspecified vessel or lesion type [place] vs. transplanted heart: [place] heart Associated angina: angina presence unspecified Qualified Code(s): I25.10 - Atherosclerotic heart disease of [place] coronary artery without angina pectoris Plan to address problem: History of CAD resume statin and aspirin (5) DVT prophylaxis Current Visit: No Status: Acute Plan to address problem: Subcutaneous heparin Disposition: - TO HOME OR SELFCARE - Discharge Diagnoses (1) Acute coronary syndrome Status: Acute Comment: Has chest pain off and on Needs follow-up with cardiology had cardiac cath and Lexiscan recently which were normal Differential diagnosis of costochondritis (2) CAD (coronary artery disease) Status: Chronic Qualifiers: Coronary Disease-Associated Artery/Lesion type: unspecified vessel or lesion type [place] vs. transplanted heart: [place] heart Associated angina: angina presence unspecified Qualified Code(s): I25.10 - Atherosclerotic heart disease of [place] coronary artery without angina pectoris (3) HTN (hypertension) Status: Chronic Qualifiers: Hypertension type: essential hypertension Qualified Code(s): I10 - Essential (primary) hypertension (4) DVT prophylaxis Status: Acute Core Measure Documentation - Palliative Care Palliative Care/ Comfort Measures: Not Applicable - Core Measures Any of the following diagnoses?: none Exam - Constitutional Vitals: Temp Pulse Resp BP Pulse Ox 97.9 F 61 20 144/84 92 12/31/20 12:06 12/31/20 12:06 12/31/20 12:06 12/31/20 12:06 12/31/20 12:06 General appearance: Present: no acute distress, well-nourished - EENT Eyes: Present: PERRL ENT: hearing intact, clear oral mucosa - Neck Neck: Present: supple, normal ROM - Respiratory Respiratory effort: normal Respiratory: bilateral: CTA - Cardiovascular Heart rate: 78 Rhythm: regular Heart Sounds: Present: S1 & S2. Absent: rub, click - Extremities Extremities: pulses symmetrical, No edema Peripheral Pulses: within normal limits - Abdominal General gastrointestinal: Present: soft, non-tender, non-distended, normal bowel sounds Male genitourinary: Present: normal - Rectal Rectal Exam: deferred - Integumentary Integumentary: Present: clear, warm, dry - Musculoskeletal Musculoskeletal: gait normal, strength equal bilaterally - Psychiatric Psychiatric: appropriate mood/affect, intact judgment & insight - Neurologic Neurologic: CNII-XII intact, moves all extremities - Allied Health Allied health notes reviewed: nursing, case management Plan Activity: no restrictions Diet: low salt Follow up with: MELANIE LORD MD [Primary Care Provider] - 7 Days CHARANJIT BILLY MD [Staff Physician] - 7 Days
[2021-01-01] MEDS ORDERED: FAMOTIDINE 20 MG TAB PO SCH (10:00)
== END 2020-12-31 18:02 | disposition home or self-care (01) ==
LOC: ED 21:23 → 4A 12-31 01:08
PROVIDERS: ADMIT Internal Medicine Geriatric Medicine; ATTEND Internal Medicine
DX: R07.89 Other chest pain (principal); I10 Essential (primary) hypertension; I24.9 Acute ischemic heart disease, unspecified; I25.10 Atherosclerotic heart disease of native coronary artery without angina pectoris; N17.9 Acute kidney failure, unspecified; R06.00 Dyspnea, unspecified; N28.9 Disorder of kidney and ureter, unspecified; E78.5 Hyperlipidemia, unspecified; E66.9 Obesity, unspecified; G43.909 Migraine, unspecified, not intractable, without status migrainosus; I73.9 Peripheral vascular disease, unspecified; J44.9 Chronic obstructive pulmonary disease, unspecified; K21.9 Gastro-esophageal reflux disease without esophagitis; Z79.82 Long term (current) use of aspirin; Z86.711 Personal history of pulmonary embolism; Z86.718 Personal history of other venous thrombosis and embolism
CPT/HCPCS: 36415; 71045; 71250; 80048; 84484; 85025; 93005; 93306; 96374; 99285; G0378